=== PATIENT | female | born 1955 | race Caucasian/White ===

== ENCOUNTER 2020-09-02 17:03 | Observation (INO) | payer BC, SELFPAY ==
[2020-09-02] MEDS ORDERED: Ondansetron PF 4 MG/2 ML Vial ONE ×2 (18:26→20:46)
[2020-09-02] MEDS ORDERED: Morphine 2 MG/ML VIAL ONE (18:26)
[2020-09-02 19:13] LABS: PTT 32.7 sec (22.9-36.1); Prothrombin Time 13.7 sec (12.0-14.7)
[2020-09-02] MEDS ORDERED: Bupivacaine 0.25% HCL 30 ML VIAL ONE (20:21)
[2020-09-02] MEDS ORDERED: Lidocaine 1% w/Epinephrine 1:100K 20 ML VIAL ONE (20:21)
[2020-09-02] MEDS ORDERED: Fentanyl 100 MCG/2 ML VIAL ONE (20:36)
[2020-09-02] MEDS ORDERED: PROPOFOL 200 MG/20 ML VIAL ONE (20:46)
[2020-09-02] MEDS ORDERED: Ketorolac Tromethamine 30 MG/ML VIAL ONE (20:46)
[2020-09-02] MEDS ORDERED: Rocuronium Bromide 10 MG/ML (10ML VIAL) ONE (20:46)
[2020-09-02] MEDS ORDERED: Lidocaine 1% PF 5 ML VIAL ONE (20:46)
[2020-09-02] MEDS ORDERED: PHENYLEPHRINE-NS 100 MCG/ML 10 ML SYRINGE ONE (20:46)
[2020-09-02] MEDS ORDERED: Succinylcholine 200 MG/10 ml SYRINGE FS ONE ×2 (20:46)
[2020-09-02] MEDS ORDERED: Dexamethasone 20 MG/5 ML VIAL ONE (20:46)
[2020-09-02] MEDS ORDERED: Glycopyrrolate 0.2 MG/ML 5 ML SYRINGE ONE (20:46)
[2020-09-02] MEDS ORDERED: hydrALAZINE 20 MG/ML VIAL SLOW IVP PRN (20:55)
[2020-09-02] MEDS ORDERED: Ondansetron PF 4 MG/2 ML Vial IVP PRN (20:55)
[2020-09-02] MEDS ORDERED: Dextrose 5% in Water 1,000 ML IV PRN (20:55)
[2020-09-02] MEDS ORDERED: Dextrose 50% Abboject 50 ML SYRINGE SLOW IVP PRN (20:55)
[2020-09-02] MEDS ORDERED: Promethazine HCl 25 MG/ML VIAL IM PRN (20:55)
[2020-09-02] MEDS ORDERED: traMADol HCl 50 MG TAB PO PRN (20:59)
[2020-09-02] MEDS ORDERED: Rosuvastatin 5 MG TAB PO SCH (21:00)
[2020-09-02] MEDS ORDERED: Sodium Chloride 0.9% 20 ML ONE (21:06)
[2020-09-02] MEDS ORDERED: ceFOXitin 1 GM VIAL ONE (21:06)
[2020-09-02] MEDS ORDERED: Morphine 4 MG/ML VIAL SLOW IVP PRN (23:02)
[2020-09-02] MEDS ORDERED: Ondansetron PF 4 MG/2 ML Vial IVP SCH (23:15)
[2020-09-02] MEDS: Piperacillin/Tazobactam 3.375 GM in Sodium Chloride 0.9% 100 ML IVPB SCH (23:54)
[2020-09-02] MEDS: Famotidine 20 MG TAB PO SCH (23:56)
[2020-09-02] MEDS: Famotidine/PF 20 mg/2ml Vial SLOW IVP SCH (23:57)
[2020-09-03] MEDS: Acetaminophen 325 MG TAB PO SCH ×3 (00:01→09:12)
[2020-09-03] MEDS: traMADol HCl 50 MG TAB PO SCH ×3 (00:01→09:18)
[2020-09-03] MEDS: buPROPion 75 MG TAB PO SCH ×2 (00:27→09:04)
[2020-09-03] MEDS: Piperacillin/Tazobactam 3.375 GM in Sodium Chloride 0.9% 100 ML IVPB SCH (06:12)
[2020-09-03] MEDS ORDERED: Carvedilol 3.125 MG TAB PO SCH (08:00)
[2020-09-03 08:07] VITALS: TEMP 97.7
[2020-09-03] MEDS ORDERED: Losartan 25 MG TAB PO SCH (09:00)
[2020-09-03] MEDS: Famotidine 20 MG TAB PO SCH (09:04)
[2020-09-03] MEDS: Famotidine/PF 20 mg/2ml Vial SLOW IVP SCH (09:05)
[2020-09-03 09:16] VITALS: BP 113/58
== END 2020-09-03 11:30 | disposition home or self-care (01) ==
LOC: SDC 17:03 → 2SW 21:01
PROVIDERS: ADMIT Surgery; ATTEND Surgery
PROC: 0DTJ4ZZ Resection of Appendix, Percutaneous Endoscopic Approach (ICD-10-PCS; principal; 2020-09-02)
DX: K35.80 Unspecified acute appendicitis (principal); I25.10 Atherosclerotic heart disease of native coronary artery without angina pectoris; I10 Essential (primary) hypertension; E78.5 Hyperlipidemia, unspecified; Z79.01 Long term (current) use of anticoagulants; Z79.82 Long term (current) use of aspirin; Z79.899 Other long term (current) drug therapy
CPT/HCPCS: 36415; 85610; 85730; 86850; 86900; 86901; 88304; 93005; 93010; 96365; G0378; J0694; J1100; J1885; J2270; J2405; J2543; J2704; J3010; J3490; S0020